=== PATIENT | female | born 1970 | race Caucasian/White ===

== ENCOUNTER 2021-12-26 14:25 | Outpatient (CLI) | payer OTHER | END 2021-12-26 14:26 | disposition home or self-care (01) | LOC: CSHLAB 14:25 | PROVIDERS: ATTEND Obstetrics & Gynecology | DX: Z01.812 Encounter for preprocedural laboratory examination (principal); Z20.822 Contact with and (suspected) exposure to COVID-19 | CPT/HCPCS: 84703; 85027; 86850; 86900; 86901; 87811 ==

== ENCOUNTER 2021-12-31 09:41 | Day surgery (SDC) | payer OTHER ==
[2021-12-26 18:11] LABS: Hemoglobin 13.2 g/dL (12.0-15.5); Mean Corpuscular HGB CONC 33.2 g/dL (32.0-36.0); Mean Corpuscular Hemoglobin 30.5 pg (27.0-33.0); Mean Corpuscular Volume 91.9 fl (81.6-98.3); Mean Platelet Volume 11.2 fl (7.4-10.4); Platelet Count 373 10x3/uL (150-450); RBC Distribution Width 12.7 % (11.5-14.5); Red Blood Cell (RBC) Count 4.33 10x6/uL (3.90-5.03); White Blood Cell (WBC) Count 8.2 10x3/uL (3.5-10.5)
[2021-12-26 18:19] LABS: BHCG - Serum Negative (NEGATIVE); Pregs Control Background? CLEAR/WHITE (CLR/WHITE); Pregs Control Bar Appear? YES (CONTROL BAR)
[2021-12-31] MEDS ORDERED: Gabapentin 300 MG CAP ONE (10:26)
[2021-12-31] MEDS ORDERED: Famotidine/PF 20 mg/2ml Vial ONE (10:26)
[2021-12-31] MEDS ORDERED: CeleCOXIB 100 MG CAP ONE (10:27)
[2021-12-31] MEDS ORDERED: Glycopyrrolate 0.2 MG/ML 5 ML SYRINGE ONE (11:30)
[2021-12-31] MEDS ORDERED: Ketorolac Tromethamine 30 MG/ML VIAL ONE (11:30)
[2021-12-31] MEDS ORDERED: Rocuronium Bromide 10 MG/ML (10ML VIAL) ONE (11:30)
[2021-12-31] MEDS ORDERED: Fentanyl 250 MCG/5 ML VIAL ONE (11:30)
[2021-12-31] MEDS ORDERED: Lidocaine 1% PF 5 ML VIAL ONE (11:30)
[2021-12-31] MEDS ORDERED: Dexamethasone 4 mg/ml Vial ONE (11:30)
[2021-12-31] MEDS ORDERED: EPINEPHrine 1 MG/ML AMP ONE (11:30)
[2021-12-31] MEDS ORDERED: Midazolam HCl 2 mg/2 ml Vial ONE (11:30)
[2021-12-31] MEDS ORDERED: PROPOFOL 20 ML ONE (11:30)
[2021-12-31] MEDS ORDERED: Ondansetron PF 4 MG/2 ML Vial ONE (11:30)
[2021-12-31] MEDS ORDERED: Bupivacaine PF 0.5% 30 ML VIAL ONE (11:31)
[2021-12-31] MEDS ORDERED: CEFAZOLIN 2 GM VIAL ONE (11:59)
[2021-12-31] MEDS ORDERED: Promethazine HCl 25 MG/ML VIAL IM PRN (13:45)
[2021-12-31] MEDS ORDERED: Simethicone Chewable 80 MG TAB PO PRN (13:45)
[2021-12-31] MEDS ORDERED: traMADol HCl 50 MG TAB PO PRN ×2 (13:45)
[2021-12-31] MEDS ORDERED: diphenhydrAMINE 25 MG CAP PO PRN (13:45)
[2021-12-31] MEDS ORDERED: Fentanyl 100 MCG/2 ML VIAL SLOW IVP PRN (13:45)
[2021-12-31] MEDS ORDERED: Ondansetron PF 4 MG/2 ML Vial IVP PRN (13:45)
[2021-12-31] MEDS ORDERED: Bisacodyl 10 MG SUPP PR PRN (13:45)
[2021-12-31] MEDS: Sodium Chloride 0.9% 1,000 ML IV SCH ×2 (17:00→20:21)
[2021-12-31 18:33] VITALS: BMI 32.5
[2021-12-31] MEDS: Ketorolac Tromethamine 30 MG/ML VIAL IVP SCH ×2 (18:45→23:55)
[2021-12-31] MEDS ORDERED: tiZANidine HCl 4 MG TAB PO SCH (21:00)
[2021-12-31] MEDS ORDERED: Gabapentin 300 MG CAP PO SCH (22:00)
[2022-01-01 05:59] LABS: Hemoglobin 12.4 g/dL (12.0-15.5); Mean Corpuscular HGB CONC 33.2 g/dL (32.0-36.0); Mean Corpuscular Hemoglobin 30.1 pg (27.0-33.0); Mean Corpuscular Volume 90.5 fl (81.6-98.3); Mean Platelet Volume 10.6 fl (7.4-10.4); Platelet Count 298 10x3/uL (150-450); RBC Distribution Width 12.9 % (11.5-14.5); Red Blood Cell (RBC) Count 4.12 10x6/uL (3.90-5.03); White Blood Cell (WBC) Count 16.1 10x3/uL (3.5-10.5)
[2022-01-01] MEDS ORDERED: Gabapentin 300 MG CAP PO SCH (06:00)
[2022-01-01] MEDS ORDERED: Ibuprofen 800 MG TAB PO SCH (06:00)
[2022-01-01] MEDS: Sodium Chloride 0.9% 1,000 ML IV SCH (06:34)
[2022-01-01 13:51] VITALS: BP 107/61; TEMP 98.1
== END 2022-01-01 10:30 | disposition home or self-care (01) ==
LOC: CSHSDC 09:41 → UNDOADMIN 16:00 → CSHTELE 16:00 → CSHSDC 01-01 10:30 → UNDODISIN 01-01 10:30
PROVIDERS: ATTEND Obstetrics & Gynecology
PROC: 0UT74ZZ Resection of Bilateral Fallopian Tubes, Percutaneous Endoscopic Approach (ICD-10-PCS; principal; 2022-01-01)
PROC: 0UT24ZZ Resection of Bilateral Ovaries, Percutaneous Endoscopic Approach (ICD-10-PCS; principal; 2022-01-01)
PROC: 0UT94ZZ Resection of Uterus, Percutaneous Endoscopic Approach (ICD-10-PCS; principal; 2022-01-01)
DX: D25.0 Submucous leiomyoma of uterus (principal); N72 Inflammatory disease of cervix uteri; N83.12 Corpus luteum cyst of left ovary; N83.8 Other noninflammatory disorders of ovary, fallopian tube and broad ligament; N92.0 Excessive and frequent menstruation with regular cycle; N94.6 Dysmenorrhea, unspecified; G80.9 Cerebral palsy, unspecified; E66.9 Obesity, unspecified; Z68.31 Body mass index [BMI] 31.0-31.9, adult; Z20.822 Contact with and (suspected) exposure to COVID-19; Z79.899 Other long term (current) drug therapy; Z88.5 Allergy status to narcotic agent; Z88.7 Allergy status to serum and vaccine
CPT/HCPCS: 36415; 84703; 85027; 86850; 86900; 86901; 87811; 88307; C1776; J0171; J0690; J1100; J1885; J2250; J2405; J2704; J3010; J7050; S0020; S0028